=== PATIENT | female | born 1960 | race American Indian/Alaskan Native ===

== ENCOUNTER 2016-11-23 20:54 | Emergency (ER) | payer BC ==
[2016-11-23 21:12] VITALS: BP 142/74
[2016-11-23 21:58] LABS: Basophils % (Auto) 0.8 % (0.0-1.8); Hematocrit 37.1 % (30.3-42.9); Mean Corpuscular HGB Conc 32 % (30-34); Mean Corpuscular Hemoglobin 27 pg (28-32); Mean Corpuscular Volume 83 fl (79-97); Platelet Count 339 K/mm3 (140-440); Red Blood Count 4.47 M/mm3 (3.65-5.03); Red Cell Distribution Width 14.4 % (13.2-15.2); White Blood Count 6.9 K/mm3 (4.5-11.0)
[2016-11-23 22:00] LABS: Anion Gap 18 mmol/L; BUN/Creatinine Ratio 13.75; Blood Urea Nitrogen 11 mg/dL (7-17); Calcium 9.1 mg/dL (8.4-10.2); Carbon Dioxide 30 mmol/L (22-30); Chloride 98.3 mmol/L (98-107); Glucose 114 mg/dL (65-100); Potassium 3.7 mmol/L (3.6-5.0); Sodium 143 mmol/L (137-145)
--- NOTE | 2016-11-26 07:34 | ED Elopement Review ---
ED Pt Elopement review - Results review Lab results: Laboratory Tests 11/23/16 11/23/16 11/24/16 21:30 21:31 00:31 WBC 6.9 RBC 4.47 Hgb 12.0 Hct 37.1 MCV 83 MCH 27 L MCHC 32 RDW 14.4 Plt Count 339 Lymph % (Auto) 35.[address] [place] % (Auto) 13.1 H Eos % (Auto) 5.0 H Baso % (Auto) 0.8 Lymph # 2.5 [place] # 0.9 H Eos # 0.3 Baso # 0.1 Seg Neutrophils % 45.4 Seg Neutrophils # 3.1 Sodium 143 Potassium 3.7 Chloride 98.3 Carbon Dioxide 30 Anion Gap 18 BUN 11 Creatinine 0.8 Estimated GFR > 60 BUN/Creatinine Ratio 13.75 Glucose 114 H Calcium 9.1 Troponin T < 0.010 < 0.010 11/24/16 03:19 WBC RBC Hgb Hct MCV MCH MCHC RDW Plt Count Lymph % (Auto) [place] % (Auto) Eos % (Auto) Baso % (Auto) Lymph # [place] # Eos # Baso # Seg Neutrophils % Seg Neutrophils # Sodium Potassium Chloride Carbon Dioxide Anion Gap BUN Creatinine Estimated GFR BUN/Creatinine Ratio Glucose Calcium Troponin T < 0.010 - Call Back decision Pt Call Back Decision: No action required
== END 2016-11-23 22:00 | disposition left against medical advice (07) ==
LOC: ED 20:54
DX: R42 Dizziness and giddiness (principal); R78.1 Finding of opiate drug in blood; Z53.21 Procedure and treatment not carried out due to patient leaving prior to being seen by health care provider
CPT/HCPCS: 36415; 80048; 84484; 85025; 93005; 93010